=== PATIENT | female | born 1985 | race Caucasian/White ===

== ENCOUNTER → 2016-12-03 | Outpatient (CLI) | payer OTHER ==
--- NOTE | ~2016-12-03 | US98 ---
[facility] A Service of [facility] RADIOLOGY TEXT RESULTS PATIENT: CHENCHO NO LOCATION: [facility] : 89 UNIT #: [id number] AGE: [address]: DIMPLE DAVIS SEX: F ORDER DR: [id number] [facility] [address] [place], [place] [address] [id number] MR#: [id number] Acc #: [id number] NAME: CHENCHO NO : 1985 SEX: F STUDY DATE/TIME: 12/03/2016 9:27 UNIT: [facility] ROOM: STUDY DESCRIPTION: US Pelvic Non-OB Complete Attending Physician: Dimple Davis M.D. Referring Physician: Arin Howe M.D. Ordering Physician: Dimple Davis M.D. Primary Care Physician: Arjun Howe M.D. MEDICAL IMAGING REPORT This report is preliminary unless electronic signature is present EXAM Pelvic ultrasound. INDICATIONS Vaginal bleeding. IUD placement. G3, P2, A0. COMPARISON Pelvic ultrasound 07/01/2016. FINDINGS The uterus measures 9.7 x 4 x 5.9 cm. Echogenic texture of the myometrium is homogeneous. An IUD is within the uterine fundus and body. Endometrial stripe measures 2-3 mm. There is a small nabothian cyst near the internal cervical os. The right ovary measures 1.5 x 1.9 x 2.9 cm. Left ovary measures 2 x 2.1 x 2.8 cm. Echogenicity echotexture in the ovaries are within normal limits. No adnexal mass or pre pelvic fluid. IMPRESSION 1. Appropriate position of the IUD. 2. Otherwise negative pelvic ultrasound. Dictated by... Damri Novak M.D. THIS IS AN ELECTRONICALLY VERIFIED REPORT Damir Novak M.D. at 12/03/2016 4:48 PM YUNI/ya TD: 12/03/2016 15:57 [facility] A Service of [facility] RADIOLOGY TEXT RESULTS PATIENT: CHENCHO [id number] : [birth year] UNIT #: [id number] AGE: [address]: DIMPLE DAVIS SEX: F ORDER DR: REGGIE #: [id number] MEDICAL IMAGING REPORT Page 1 of 1 COPY
== END | disposition home or self-care (01) ==
LOC: CWCC 08:37
DX: N93.9 Abnormal uterine and vaginal bleeding, unspecified (principal); Z30.431 Encounter for routine checking of intrauterine contraceptive device
CPT/HCPCS: 76830; 76856